=== PATIENT | female | born 1960 | race Caucasian/White ===

== ENCOUNTER 2020-05-17 14:21 | Outpatient (CLI) | payer BC, SELFPAY ==
--- NOTE | 2020-05-17 14:29 | MM_ITS ---
WS: [id number] SCREENING DIGITAL MAMMOGRAM WITH CAD HISTORY: SCREENING COMPARISON: None available. Bilateral CC and MLO views submitted. Computer aided detection analyzed. Breast composition: There are scattered areas of fibroglandular density. No suspicious masses, microc alcifications or architectural distortion. There are a few scattered calcifications. No mass. MM/[place] [id number] IMPRESSION: BI-RADS: 2-Benign FOLLOW UP: 1 Year Follow-up
== END 2020-05-17 14:22 | disposition home or self-care (01) ==
LOC: RADSHAW 14:26
PROVIDERS: PCP Internal Medicine; Visit Provider Internal Medicine
DX: Z12.31 Encounter for screening mammogram for malignant neoplasm of breast (principal)
CPT/HCPCS: 77067

== ENCOUNTER 2022-07-08 07:45 | Outpatient (CLI) | payer OTHER, SELFPAY ==
--- NOTE | 2022-07-08 07:54 | MM_ITS ---
WS: [id number] Bilateral screening 3D tomosynthesis digital mammogram, 07/08/2022 Clinical Data: SCREENING Comparison: 05/17/2020. Findings: The breast parenchymal pattern shows fat replacement. No spiculated masses or clustered calcification s are seen. There are no secondary signs of carcinoma. There is a 1.2 cm density in the central porti on of the right breast 6 cm from the nipple at the 12:00 position which has the appearance of an intr amammary lymph node. Recommend right breast ultrasound. The left breast is normal. There are lymph no caren in both axilla. MM/[place] [id number] Impression: 1. 1.2 cm central right breast nodule. 2. Recommend right breast ultrasound BIRADS: 0-Incomplete: Need additional imaging evaluation FOLLOW UP: Need Additional Imaging The CAD bingo checker was used.
== END 2022-07-08 07:46 | disposition home or self-care (01) ==
LOC: RAD 07:46
PROVIDERS: PCP Internal Medicine; Visit Provider Internal Medicine
DX: Z12.31 Encounter for screening mammogram for malignant neoplasm of breast (principal)
CPT/HCPCS: 77063; 77067

== ENCOUNTER 2022-07-24 08:40 | Outpatient (CLI) | payer OTHER, SELFPAY ==
--- NOTE | 2022-07-24 08:46 | US_ITS ---
WS: [id number] ULTRASOUND RIGHT BREAST HISTORY: ABNORMAL MAMMOGRAM COMPARISON: Mammogram 07/08/2000 [id number] 11/05/2020 TECHNIQUE: 2-D and Doppler. There is a small cyst RIGHT breast 12:00 at 6 cm from the nipple. Cyst measures 8 x 5 x 8 mm. This ma y not correlate with the mammographic abnormality. The size is smaller than expected. No additional a bnormality is identified. As imaging findings are not concordant short-term follow-up is recommended. US/US breast RT limited* [id number] IMPRESSION: BI-RADS: 3-Probably Benign FOLLOW-UP: 6 Month Follow-up Recommend mammographic and ultrasound follow-up in 6 months. The ultrasound fin dings are not completely concordant with the mammographic findings. Ultrasound findings of the cyst are benign. Cyst measures smaller than expected by mammogr aphy.
== END 2022-07-24 08:41 | disposition home or self-care (01) ==
LOC: RAD 08:41
PROVIDERS: PCP Internal Medicine; Visit Provider Internal Medicine
DX: R92.8 Other abnormal and inconclusive findings on diagnostic imaging of breast (principal); N60.01 Solitary cyst of right breast
CPT/HCPCS: 76642

== ENCOUNTER 2023-02-04 13:07 | Outpatient (CLI) | payer OTHER, SELFPAY ==
--- NOTE | 2023-02-04 13:20 | MM_ITS ---
WS: [id number] RIGHT DIAGNOSTIC DIGITAL TOMOSYNTHESIS MAMMOGRAPHY WITH CAD. RIGHT breast ultrasound, limited HISTORY: 6 month follow-up mass in the RIGHT breast which is not concordant with the ultrasound findi ngs. COMPARISON: 07/24/2022, 07/08/2022 Technique: CC, MLO and ML views. Breast composition: There are scattered areas of fibroglandular density. Mass persists measuring 12 mm in the superior slightly lateral RIGHT breast at anterior depth. No interval change. Ultrasound RIGHT breast, limited. Anechoic mass consistent with a cyst is identified at 12:00, 2 cm the nipple. The shape is very simil ar to the mammographic abnormality. The size today is 8 x 4 x 10 mm consistent with the mammographic finding. MM/[place] [id number] IMPRESSION: BI-RADS: 2-Benign FOLLOW UP: See Report Mammographic and ultrasound findings are concordant today. Cyst is identified a t 12:00, 2 cm from the nipple which is similar shape and size to the mammograph ic finding. Recommend return to annual screening mammography. Annual screening mammography recommended for June 2023.
== END 2023-02-04 13:08 | disposition home or self-care (01) ==
LOC: RAD 13:16
PROVIDERS: PCP Internal Medicine; Visit Provider Internal Medicine
DX: N60.01 Solitary cyst of right breast (principal)
CPT/HCPCS: 76642; 77061; G0279

== ENCOUNTER 2023-05-30 02:37 | Emergency (ER) | payer OTHER, SELFPAY ==
[2023-05-30 02:47] VITALS: BP 148/82; PULSE 65; RESP 19; TEMP 37.2; O2SAT 97; BMI 42.5
--- NOTE | 2023-05-30 03:23 | XRR_ITS ---
PROCEDURE INFORMATION: Exam: XR Chest Exam date and time: 05/30/2023 3:30 AM Age: 63 years old Clinical indication: Other: General weakness TECHNIQUE: Imaging protocol: Radiologic exam of the chest. Views: 1 view. COMPARISON: 1. CR XR chest 1V 12/16/2018 5:[address] angio chest PE protcl [id number] 12/16/2018 7:03 AM FINDINGS: Limitations: Evaluation mildly limited by patient body habitus. Lungs: No consolidation, mass, or pulmonary edema. Pleural spaces: No pneumothorax or obvious pleural effusion. Heart/Mediastinum: Cardiomediastinal silhouette is stable and unremarkable. Diaphragm: Mild eventration of the right hemidiaphragm. Bones/joints: No acute osseous abnormality. XR/XR chest 1V portable [id number] IMPRESSION: No acute findings.
--- NOTE | 2023-05-30 03:23 | CTR_ITS ---
PROCEDURE INFORMATION: Exam: CT Head Without Contrast Exam date and time: 05/30/2023 3:36 AM Age: 63 years old Clinical indication: Other: General weakness TECHNIQUE: Imaging protocol: Computed tomography of the head without contrast. Radiation optimization: All CT scans at this facility use at least one of these dose optimization techniques: automated exposure control; mA and/or kV adjustment per patient size (includes targeted exams where dose is matched to clinical indication); or iterative reconstruction. REPORTING DATA: Count of CT and Cardiac NM exams in prior 12 months: This patient has received 0 known CTs and 0 known cardiac nuclear medicine studies in the 12 months prior to the current study. COMPARISON: No relevant prior studies available. RADIATION DOSE METRICS: Total DLP (mGy-cm): 1038.39 FINDINGS: Brain: No acute intracranial hemorrhage, acute large territory infarct, or obvious mass lesion. Age appropriate diffuse cerebral volume loss. Minimal chronic white matter changes, likely to be chronic small vessel ischemic changes. Cerebral ventricles: No ventriculomegaly. Paranasal sinuses: Visualized sinuses are unremarkable. No fluid levels. Mastoid air cells: Visualized mastoid air cells are well aerated. Bones/joints: Unremarkable. No acute fracture. Soft tissues: Unremarkable. CT/CT head wo con* [id number] IMPRESSION: No acute intracranial abnormality.
--- NOTE | 2023-05-30 03:32 | ECG_ITS ---
[facility] Test Date: 2023-05-30 Pat Name: Marie Ramirez Department: Room: Gender: Female Parts Data Writer: : 1960 Requested By: Cristofer Todd Order Number: [id number] Darrick MD: Eugene Montenegro M.D. Measurements Intervals [place] Rate: 64 P: 69 SD: 188 QRS: 9 QRSD: 115 T: 34 QT: 397 QTc: 411 Interpretive Statements SINUS RHYTHM MODERATE INTRAVENTRICULAR CONDUCTION DELAY [110+ ms QRS DURATION] Compared to ECG 12/16/2018 07:37:04 Intraventricular conduction delay now present T-wave abnormality no longer present Electronically Signed On 05-30-2023 9:43:41 CDT by Eugene Montenegro M.D. [id number]
--- NOTE | 2023-05-30 03:44 | W.ED.WEAKNES ---
HPI - Weakness General: Chief complaint: Weakness Stated complaint: Not Coherent\Low Energy Time Seen by Provider: 05/30/23 02:51 History of Present Illness: 63-year-old female who has not been in her usual state of health for the past 2 to 3 weeks. She was seen by her primary physician, and found to have uncontrolled blood pressure, so her dosage was doubled. She was also recently referred to rheumatology for inflammation problems . She has been generally weak on and off, and according to her has been less coherent at times. She went to bed last night sometime around 11 PM. She woke up at some point this morning, and felt more ill. She complained of pain to the right side of her head radiating into her right jaw. She complained of right eye blurriness, and perhaps trouble finding her words. The symptoms are resolved currently. MD Complaint: generalized weakness and lack of energy Onset (ago): hour(s) Duration: constant and now resolved Location: generalized Migration: none Severity: moderate Associated symptoms: Reports headache(s); Denies chest pain, fever(s), nausea or vomiting Review of Systems Const: Denies: fever(s) ENMT: Denies: throat pain Card: Denies: chest pain or palpitations Resp: Denies: dyspnea, productive cough or non-productive cough GI: Denies: abdominal pain, nausea or vomiting Musc: Denies: neck pain or back pain Neuro: Reports: headache(s), weakness in extremities and dizziness; Denies: numbness in extremities, sensory changes, lack of coordination or difficulty walking Physical Exam Const: COMMON NORMALS: no acute distress GENERAL APPEARANCE: cooperative; not ill appearing and not frail appearing HENMT: COMMON NORMALS: normocephalic, atraumatic and Normal external nose present HEAD & SCALP: normocephalic and atraumatic FACE & SINUS: normal facial exam and face symmetric NOSE: Normal external nose present Eye: COMMON NORMALS: Equal, round and reactive pupils present and EOMs intact bilaterally PUPIL: Yes Equal, round and reactive pupils present Neck/C-Spine: GENERAL: Yes trachea midline Chest: CHEST: Yes Symmetrical chest wall rise Resp: COMMON NORMALS: normal respiratory effort, No retractions, No use of accessory muscles and clear to auscultation bilaterally AUSCULTATION: clear to auscultation bilaterally Cardio: COMMON NORMALS: regular rate and regular rhythm RATE: regular rate RHYTHM: regular rhythm GI: COMMON NORMALS: Normal to inspection, nondistended, normoactive bowel sounds present Extremity: COMMON NORMALS: no pedal edema Neuro: NORTH COMA SCALE: document GCS findings North coma scale eye opening: Spontaneous [place] coma scale verbal response: Orientated North coma scale motor response: Obey commands North coma scale total score: 15 SENSORY EXAM: Yes extremities (intact) Psych: COMMON NORMALS: speech normal SPEECH: Yes normal speech Skin: COMMON NORMALS: no rashes or lesions noted GENERAL SKIN EXAM: no rashes or lesions noted Course Vital Signs: Vital signs: Vital Signs Temperature 98.9 F 05/30/23 02:47 Pulse Rate 65 05/30/23 02:47 Respiratory Rate 19 H 05/30/23 02:47 Blood Pressure 148/82 05/30/23 02:47 Pulse Oximetry 97 05/30/23 02:47 Oxygen Delivery Me thod Room Air 05/30/23 02:47 MDM - Weakness Medical Decision Making NIH stroke scale is 0. Head CT is negative for any acute finding. Chest x-ray is negative. CBC is normal. Sodium is 132 otherwise BMP and liver enzymes are essentially normal. Urinalysis shows a mild urinary tract infection likely. Likely not a cause of her symptoms. She is feeling improved after IV fluids and Depacon infusion. In the differential would be TIA, atypical migraine, vasculitis, etc. With resolution of her blurry vision, and improvement in her symptoms otherwise, she will be allowed home to continue outpatient work-up. This probably should include at this point echo and carotids. Patient was informed of this. She will follow-up with her PCP. Full dose aspirin until work-up is complete. Lab Data 05/30/23 03:55 05/30/23 03:55 Radiology Impressions Chest X-Ray 05/30/23 03:23 IMPRESSION: No acute findings. Head CT 05/30/23 03:23 IMPRESSION: No acute intracranial abnormality. Laboratory Results WBC 8.3 10^3/uL (4.0-10.0) 05/30/23 03:55 RBC 4.56 10^6/uL (4.1-5.3) 05/30/23 03:55 Hgb 14.3 g/dL (11.5-15.3) 05/30/23 03:55 Hct 45.0 % (37.0-47.0) 05/30/23 03:55 MCV 98.7 fl (81-99) 05/30/23 03:55 MCH 31.4 pg (28.0-34.0) 05/30/23 03:55 MCHC 31.8 g/dL (30.0-36.0) 05/30/23 03:55 RDW 12.3 % (12.1-15.1) 05/30/23 03:55 Plt Count 208 10^3/cmm (130-400) 05/30/23 03:55 MPV 11.0 fL (7.4-10.4) H 05/30/23 03:55 Neut % (Auto) 63.1 % 05/30/23 03:55 Lymph % (Auto) 26.9 % 05/30/23 03:55 [place]oval % (Auto) 8.1 % 05/30/23 03:55 Eos % (Auto) 1.4 % 05/30/23 03:55 Baso % (Auto) 0.4 % 05/30/23 03:55 Neut # (Auto) 5.23 10^3/uL (1.8-7.7) 05/30/23 03:55 Lymph # (Auto) 2.2 10^3/uL (0.8-4.8) 05/30/23 03:55 [place] # (Auto) 0.7 10^3/uL (0.2-0.9) 05/30/23 03:55 Eos # (Auto) 0.1 10^3/uL (0.0-0.8) 05/30/23 03:55 Baso # (Auto) 0.0 10^3/uL (0.0-0.1) 05/30/23 03:55 Nucleated RBC % (auto) 0 % 05/30/23 03:55 Nucleated RBCs # 0.0 /100WBC 05/30/23 03:55 Sodium 132 mmol/L (136-145) L 05/30/23 03:55 Potassium 3.5 mmol/L (3.5-5.1) 05/30/23 03:55 Chloride 98 mmol/L (98-107) 05/30/23 03:55 Carbon Dioxide 24 mmol/L (22-29) 05/30/23 03:55 Anion Gap 13.5 (5-19) 05/30/23 03:55 BUN 11 mg/dL (8-23) 05/30/23 03:55 Creatinine 0.7 mg/dL (0.5-0.9) 05/30/23 03:55 GFR Calculation 85.1 mL/min (90-130) L 05/30/23 03:55 Glucose 115 mg/dL (65-115) 05/30/23 03:55 Calculated Osmolality 274 mOsm/kg (285-295) L 05/30/23 03:55 Calcium 9.3 mg/dL (8.5-10.5) 05/30/23 03:55 Total Bilirubin 0.3 mg/dL (0.15-1.2) 05/30/23 03:55 AST 13 U/L (0-32) 05/30/23 03:55 ALT 14 U/L (0-33) 05/30/23 03:55 Alkaline Phosphatase 64 U/L (35-105) 05/30/23 03:55 Creatine Kinase 76 U/L (26-192) 05/30/23 03:55 C-Reactive Protein 8.4 mg/L (0.0-4.9) H 05/30/23 03:55 Total Protein 7.2 g/dL (6.6-8.7) 05/30/23 03:55 Albumin 4.0 g/dL (3.5-5.2) 05/30/23 03:55 Globulin 3.2 g/dL (1.3-4.6) 05/30/23 03:55 Procalcitonin 0.05 ng/mL (0-0.5) 05/30/23 03:55 Urine Color Yellow (Yellow) 05/30/23 05:09 Urine Appearance Hazy (CLEAR) A 05/30/23 05:09 Urine pH 5 (5-7) 05/30/23 05:09 Ur Specific [place] 1.010 (1.005-1.030) 05/30/23 05:09 Urine Protein Neg (Negative) 05/30/23 05:09 Urine Glucose (UA) Norm (Normal) 05/30/23 05:09 Urine Ketones Negative (Negative) 05/30/23 05:09 Urine Blood Neg (Negative) 05/30/23 05:09 Urine Nitrate Negative (Negative) 05/30/23 05:09 Urine Bilirubin Neg (Negative) 05/30/23 05:09 Urine Urobilinogen Norm mg/dL (Negative) 05/30/23 05:09 Ur Leukocyte Esterase 1+ (Negative) H 05/30/23 05:09 Urine RBC 0-4 /hpf (0-2) H 05/30/23 05:09 Urine WBC 5-10 /hpf (0-5) H 05/30/23 05:09 Ur Squamous Epith Cells 0-4 /hpf (0-5) H 05/30/23 05:09 Amorphous Sediment Not Reportable 05/30/23 05:09 Urine Bacteria Trace /hpf (NONE) 05/30/23 05:09 Discharge Plan Discharge Patient Disposition: Home Clinical Impression: Headache, Alteration in vision, UTI (urinary tract infection) Condition: Stable Prescriptions: New aspirin 325 mg capsule 325 mg PO DAILY Qty: 30 0RF Discharge Orders: Discharge ED (Routine); Ordered 05/30/23 Ordered By: Cristofer Montes Referrals: Era Lr MD [Primary Care Provider] - 1-3 days Patient Instructions: Urinary Tract Infection in Women (ED), Weakness (ED), Opioid Safety, Pain Management Activity Restrictions/Additional Instructions: Return for any return of symptoms such as blurry vision, trouble with speech or language, weakness, etc. See your doctor this week. Further outpatient work-up may be needed including ultrasounds of your heart and carotid arteries. Take a full dose aspirin daily until evaluated by your doctor. Coding Level of Care Code ED [employer] [place] NIH stroke score NIHSS Level Of Consciousness - 1a: 0 Level Of Consciousness Questions - 1b: Both Correct Level Of Consciousness Commands - 1c: Both Correct Best Gaze - 2: Normal Visual Evans - 3: No Visual Loss Facial Palsy - 4: Normal Motor Arm Right - 5: No Drift Motor Arm Left - 5: No Drift Motor Leg Right - 6: No Drift Motor Leg Left - 6: No Drift Limb Ataxia - 7: Absent Sensory - 8: Normal Best Language - 9: No Aphasia Dysarthia - 10: Normal Extinction And Inattention - 11: 0 Score Total Score: 0
[2023-05-30] MEDS: valproic acid inj 500 MG in sodium chloride 0.9% 50 ML 55 MG IV (03:56)
[2023-05-30] MEDS: sodium chloride 0.9% 500 ML IV (03:56)
[2023-05-30 03:59] LABS: Basophils % 0.4 %; Eosinophils # 0.1 10^3/uL (0.0-0.8); Eosinophils % 1.4 %; Hemoglobin 14.3 g/dL (11.5-15.3); Lymphocytes # 2.2 10^3/uL (0.8-4.8); Lymphocytes % 26.9 %; Mean Corpuscular HGB Conc 31.8 g/dL (30.0-36.0); Mean Corpuscular Hemoglobin 31.4 pg (28.0-34.0); Mean Corpuscular Volume 98.7 fl (81-99); Monocytes # 0.7 10^3/uL (0.2-0.9); Monocytes % 8.1 %; Neutrophils # 5.23 10^3/uL (1.8-7.7); Neutrophils % 63.1 %; Nucleated Red Blood Cells % 0 %; Platelet Count 208 10^3/cmm (130-400); Red Blood Count 4.56 10^6/uL (4.1-5.3); Red Cell Distribution Width 12.3 % (12.1-15.1); White Blood Count 8.3 10^3/uL (4.0-10.0)
[2023-05-30 04:17] LABS: Alanine Aminotransferase 14 U/L (0-33); Alkaline Phosphatase 64 U/L (35-105); Anion Gap 13.5 (5-19); Aspartate Amino Transferase 13 U/L (0-32); Blood Urea Nitrogen 11 mg/dL (8-23); C Reactive Protein 8.4 mg/L (0.0-4.9); Calcium 9.3 mg/dL (8.5-10.5); Carbon Dioxide 24 mmol/L (22-29); Chloride 98 mmol/L (98-107); Creatine Phosphokinase 76 U/L (26-192); Globulin 3.2 g/dL (1.3-4.6); Glomerular Filtration Rate 85.1 mL/min (90-130); Glucose 115 mg/dL (65-115); Osmolality Calculated 274 mOsm/kg (285-295); Potassium 3.5 mmol/L (3.5-5.1); Sodium 132 mmol/L (136-145); Total Bilirubin 0.3 mg/dL (0.15-1.2); Total Protein 7.2 g/dL (6.6-8.7)
[2023-05-30 04:22] LABS: Procalcitonin 0.05 ng/mL (0-0.5)
[2023-05-30 05:28] LABS: Add Urine Microscopic? YES; Bilirubin Urine Neg (Negative); Blood Urine Neg (Negative); Glucose Urine UA Norm (Normal); Ketones Urine Negative (Negative); Leukocyte Esterase Urine 1+ (Negative); Nitrate Urine Negative (Negative); Protein Urine Neg (Negative); Urine Appearance Hazy (CLEAR); Urine Color Yellow (Yellow); Urobilinogen Urine Norm (Negative); pH Urine 5 (5-7)
[2023-05-30 05:30] LABS: RBC Urine 0-4 /hpf (0-2)
[2023-05-30 05:31] LABS: Bacteria Urine TRACE /hpf; Squamous Epithelial Cell Urine 0-4 /hpf (0-5)
[2023-05-30 05:58] VITALS: BP 122/58; PULSE 63; RESP 16; O2SAT 97
== END 2023-05-30 05:54 | disposition home or self-care (01) ==
PROVIDERS: Emergency Provider Emergency Medicine; PCP Internal Medicine
DX: R51.9 Headache, unspecified (principal); H53.9 Unspecified visual disturbance; N39.0 Urinary tract infection, site not specified
CPT/HCPCS: 70450; 71045; 80053; 81001; 82550; 84145; 85025; 86140; 93005; 99285; J3490; J7040

== ENCOUNTER 2023-08-11 09:45 | Outpatient (CLI) | payer OTHER, SELFPAY ==
--- NOTE | 2023-08-11 09:52 | MM_ITS ---
WS: [id number] BILATERAL SCREENING DIGITAL TOMOSYNTHESIS MAMMOGRAM WITH CAD HISTORY: SCREENING COMPARISON: 02/04/2023, 07/08/2022 Bilateral CC and MLO views with tomosynthesis and synthetic mammography submitted. Computer aided det ection analyzed. Breast composition: There are scattered areas of fibroglandular density. No suspicious masses, microc alcifications or architectural distortion. Reidentified is 11 mm ovoid mass near 12:00 of the RIGHT b reast at a middle depth. Noted to be a cyst on a prior ultrasound. No suspicious calcification or mas s. IMPRESSION: MM/[place] [id number] BI-RADS: 2-Benign FOLLOW UP: 1 Year Follow-up
== END 2023-08-11 09:46 | disposition home or self-care (01) ==
PROVIDERS: PCP Internal Medicine; Visit Provider Internal Medicine
DX: Z12.31 Encounter for screening mammogram for malignant neoplasm of breast (principal)
CPT/HCPCS: 77063; 77067

== ENCOUNTER 2024-11-21 10:31 | Outpatient (CLI) | payer OTHER, SELFPAY ==
--- NOTE | 2024-11-21 10:33 | MM_ITS ---
WS: [id number] BILATERAL 3D TOMOSYNTHESIS DIGITAL SCREENING MAMMOGRAM WITH CAD CLINICAL INFORMATION: SCREENING HISTORY: Screening mammogram. No current complaints. COMPARISON: 2022 TECHNIQUE: Bilateral CC and MLO views. FINDINGS: Fatty-replaced breasts bilaterally. No suspicious focal mass, asymmetry, calcifications, or architecture instructor ural distortion. No evidence of malignancy. Stable 11 mm nodule anterior RIGHT breast. This was demon strated to represent a cyst on the prior ultrasound. MM/MM [facility] tomosynthesis [id number] IMPRESSION: DENSITY: There are scattered areas of fibroglandular density. BI-RADS: 2 - Benign. FOLLOW UP: 1 Year Follow-up Recommend return to annual screening mammography.
== END 2024-11-21 10:32 | disposition home or self-care (01) ==
LOC: RAD 10:32
PROVIDERS: PCP Internal Medicine; Visit Provider Internal Medicine
DX: Z12.31 Encounter for screening mammogram for malignant neoplasm of breast (principal); R92.323 Mammographic fibroglandular density, bilateral breasts; R92.313 Mammographic fatty tissue density, bilateral breasts; N63.10 Unspecified lump in the right breast, unspecified quadrant
CPT/HCPCS: 77063; 77067

== ENCOUNTER 2025-05-28 14:53 | Emergency (ER) | payer OTHER, SELFPAY ==
[2025-05-28 15:33] VITALS: BP 125/81; PULSE 80; RESP 22; TEMP 36.6; O2SAT 99; BMI 39.9
--- NOTE | 2025-05-28 16:08 | XRR_ITS ---
PROCEDURE INFORMATION: Exam: XR Lumbosacral Spine Exam date and time: 05/28/2025 4:22 PM Age: 65 years old Clinical indication: Low back pain; Additional info: Back pain/injury TECHNIQUE: Imaging protocol: Radiologic exam of the lumbosacral spine. Views: 2 or 3 views. COMPARISON: No relevant prior studies available. FINDINGS: Bones/joints: Facet arthropathy can be seen at multiple levels. No acute fracture or subluxation noted. Mild vertebral body spurring can be seen anteriorly at multiple levels.The bony structures demonstrate diffuse osteopenia. Soft tissues: Unremarkable. XR/XR lumbar spine 2-3V* [id number] IMPRESSION: Osteoporosis with multilevel arthritic changes. No fracture noted.
--- NOTE | 2025-05-28 16:08 | W.ED.BACK ---
Documented by User: DOROTA Ashley 05/28/25 16:28 HPI - Back Pain/Injury General: Chief Complaint: Back Pain/Injury Stated Complaint: back pains Time Seen by Provider: 05/28/25 16:05 Source: patient Mode of arrival: wheelchair Limitations: no limitations History of Present Illness: Patient is a 65-year-old female presents to ED today with complaint of low back pain that began just a few hours ago. Patient states she was trying to lift her garage door to get it off of an [employer] package that had been delivered when she immediately heard a loud pop in her lower back and has since had significant discomfort. She states pain does not radiate down into her buttocks or lower extremities. She states pain does not radiate into her abdomen. Patient not complaining of numbness, tingling, loss of sensation to her legs. Pain is significantly worse with movement. Denies previous back issues. MD elicited complaint: back pain Pertinent past history: recent trauma Onset (ago): hour(s) Timing: constant Severity: severe Similar Symptoms Previously: No Quality: sharp Location: lumbar spine Radiation: none Exacerbating factors: movement Relieving factors: none Context: while lifting Associated symptoms: Reports no associated symptoms and difficulty walking (due to back pain); Deny abdominal pain, fever(s) or hematuria Work related injury: No Related Data Previous Rx's ?Medication ?Instructions ?Recorded aspirin 325 mg capsule 325 mg PO DAILY #30 caps 05/30/23 ketorolac 10 mg tablet 10 mg PO Q6H PRN pain 5 days #20 05/28/25 tabs tizanidine 4 mg tablet 4 mg PO Q8H PRN muscle spasticity 05/28/25 #20 tabs Allergies Allergy/AdvReac Type Severity Reaction Status Date / Time No Known Allergies Allergy Verified 05/28/25 15:37 Review of Systems Const: Denies: fever(s) Card: Denies: chest pain Resp: Denies: dyspnea GI: Denies: abdominal pain : Denies: flank pain or hematuria Musc: Reports: back pain; Denies: neck pain, extremity pain or joint pain Neuro: Reports: difficulty walking (due to back pain); Denies: numbness in extremities, weakness in extremities or sensory changes Physical Exam Const: COMMON NORMALS: no acute distress, patient oriented x3, no limitations, alert and well nourished GENERAL APPEARANCE: cooperative NUTRITIONAL APPEARANCE: obese morbidly obese ORIENTATION/CONSCIOUSNESS: Yes awake, Yes oriented to person, Yes oriented to place and Yes oriented to time Chest: COMMONS NORMALS: normal inspection of the chest and normal palpation of entire chest wall Resp: COMMON NORMALS: normal respiratory effort and clear to auscultation bilaterally AUSCULTATION: clear to auscultation bilaterally Cardio: COMMON NORMALS: regular rate and regular rhythm RATE: regular rate RHYTHM: regular rhythm GI: COMMON NORMALS: Normal to inspection, nondistended, normoactive bowel sounds present, Soft to palpation, non-tender and no masses PALPATION: Yes Soft to palpation Back/Pelvis: COMMON NORMALS: thoracic and lumbar spine normal to inspection and straight leg raise negative bilaterally THORACIC SPINE/UPPER BACK: No thoracic spinal tenderness LUMBAR SPINE/LOWER BACK: Yes ROM limited, Yes lumbar spinal tenderness, No paraspinal muscle tenderness and No paraspinal muscle spasm PELVIS: Yes buttocks normal SACROILIAC JOINTS: Yes SI joints normal SACRUM: no tenderness COCCYX: no tenderness Extremity: COMMON NORMALS: capillary refill normal, no clubbing, cyanosis or edema, no calf tenderness and no pedal edema GENERAL: Yes normal exam except as noted Neuro: COMMON NORMALS: patient oriented x3, moves all extremities, no focal motor deficits and no sensory deficits noted SENSORIUM/ORIENTATION: Yes alert, Yes oriented to person, Yes oriented to place and Yes oriented to time Course Vital Signs: Vital signs: Vital Signs Temperature 98 F 05/28/25 15:33 Pulse Rate 70 05/28/25 17:11 Respiratory Rate 16 05/28/25 17:11 Blood Pressure 103/58 05/28/25 17:11 Pulse Oximetry 94 05/28/25 17:11 Oxygen Delivery Me thod Room Air 05/28/25 17:11 MDM - Back Pain/Injury Labs Radiology Impressions Lumbar Spine X-Ray 05/28/25 16:08 IMPRESSION: Osteoporosis with multilevel arthritic changes. No fracture noted. Discharge Plan Discharge Patient Disposition: Home Clinical Impression: Low back pain Qualifiers: Chronicity: acute Back pain laterality: midline Sciatica presence: without sciatica Qualified Code(s): M54.50 - Low back pain, unspecified Strain of lumbar region Qualifiers: Encounter type: initial encounter Qualified Code(s): S39.012A - Strain of muscle, fascia and tendon of lower back, initial encounter Condition: Stable Prescriptions: New ketorolac 10 mg tablet 10 mg PO Q6H PRN (Reason: pain) 5 Days Qty: 20 0RF tizanidine 4 mg tablet 4 mg PO Q8H PRN (Reason: muscle spasticity) Qty: 20 0RF No Action aspirin 325 mg capsule 325 mg PO DAILY Qty: 30 0RF Discharge Orders: Discharge ED (Routine); Ordered 05/28/25 Ordered By: Don Cruz Referrals: Era Lr MD [Primary Care Provider, Internal Medicine] Discharge Diet: Usual diet Discharge Activity: Increase activity as tolerated Patient Instructions: Acute Low Back Pain (ED), Lower Back Exercises (ED), Pain Management, Patient Portal & [facility] Instructions Activity Restrictions/Additional Instructions: No fracture noted on the x-ray today. The x-ray of your low back does reveal osteoporosis as well as arthritis. A short course of ketorolac and tizanidine have been sent to your pharmacy. Please do not drive or operate heavy machinery while taking tizanidine Work on range of motion exercises beginning tomorrow. Apply a warm compress to the back for 10 to 15 minutes prior to beginning range of motion exercises. Apply a cool compress for 10 to 15 minutes after exercising to help with inflammation Avoid lifting for the next 3 to 5 days. Activity as tolerated. Follow-up with primary care, call in the next couple of days with an update of symptoms and to schedule a recheck Return to the emergency department if any rapid worsening symptoms, further injury, groin numbness/tingling, lower extremity weakness, incontinence, and as needed Print Language: Panamanian Coding Level of Care Code ED [employer] for [employer] Documented by User: NAILA Morrow 05/28/25 17:55 HPI - Back Pain/Injury General: Chief Complaint: Back Pain/Injury Stated Complaint: back pains Time Seen by Provider: 05/28/25 16:05 Related Data Previous Rx's ?Medication ?Instructions ?Recorded aspirin 325 mg capsule 325 mg PO DAILY #30 caps 05/30/23 ketorolac 10 mg tablet 10 mg PO Q6H PRN pain 5 days #20 05/28/25 tabs tizanidine 4 mg tablet 4 mg PO Q8H PRN muscle spasticity 05/28/25 #20 tabs Allergies Allergy/AdvReac Type Severity Reaction Status Date / Time No Known Allergies Allergy Verified 05/28/25 15:37 Course Vital Signs: Vital signs: Vital Signs Temperature 98 F 05/28/25 15:33 Pulse Rate 70 05/28/25 17:11 Respiratory Rate 16 05/28/25 17:11 Blood Pressure 103/58 05/28/25 17:11 Pulse Oximetry 94 05/28/25 17:11 Oxygen Delivery Me thod Room Air 05/28/25 17:11 MDM - Back Pain/Injury Medical Decision Making Received patient at 1700 from DOROTA Rhoades due to change of shift. X-ray pending. Patient did report improvement in her pain after medication administration of orphenadrine, morphine, ketorolac, and dexamethasone. She states that the pain is now tolerable and dull. Awaiting x-ray results. No cauda equina symptoms. X-ray of the lumbar spine does reveal osteoporosis with multilevel arthritic changes. No fractures noted. Discussed findings with patient and family. Prescription of ketorolac and tizanidine sent to patient's pharmacy, sedation precautions provided. Recommend application of a cool compress to help with inflammation and warm compress prior to working on range of motion exercises. Discussed activity modification. Recommend she follow-up with primary care, call in 2 days with an update of symptoms and to discuss recheck. Return precautions provided. Patient states understanding and has no further questions or concerns at this time. Medical Records I reviewed the patient's medical records. Labs Radiology Impressions Lumbar Spine X-Ray 05/28/25 16:08 IMPRESSION: Osteoporosis with multilevel arthritic changes. No fracture noted. All radiology interpretation(s) finalized by discharge Discharge Plan Discharge Patient Disposition: Home Clinical Impression: Low back pain Qualifiers: Chronicity: acute Back pain laterality: midline Sciatica presence: without sciatica Qualified Code(s): M54.50 - Low back pain, unspecified Strain of lumbar region Qualifiers: Encounter type: initial encounter Qualified Code(s): S39.012A - Strain of muscle, fascia and tendon of lower back, initial encounter Condition: Stable Prescriptions: New ketorolac 10 mg tablet 10 mg PO Q6H PRN (Reason: pain) 5 Days Qty: 20 0RF tizanidine 4 mg tablet 4 mg PO Q8H PRN (Reason: muscle spasticity) Qty: 20 0RF No Action aspirin 325 mg capsule 325 mg PO DAILY Qty: 30 0RF Discharge Orders: Discharge ED (Routine); Ordered 05/28/25 Ordered By: Don Cruz Referrals: Era Lr MD [Primary Care Provider, Internal Medicine] Discharge Diet: Usual diet Discharge Activity: Increase activity as tolerated Patient Instructions: Acute Low Back Pain (ED), Lower Back Exercises (ED), Pain Management, Patient Portal & [facility] Instructions Activity Restrictions/Additional Instructions: No fracture noted on the x-ray today. The x-ray of your low back does reveal osteoporosis as well as arthritis. A short course of ketorolac and tizanidine have been sent to your pharmacy. Please do not drive or operate heavy machinery while taking tizanidine Work on range of motion exercises beginning tomorrow. Apply a warm compress to the back for 10 to 15 minutes prior to beginning range of motion exercises. Apply a cool compress for 10 to 15 minutes after exercising to help with inflammation Avoid lifting for the next 3 to 5 days. Activity as tolerated. Follow-up with primary care, call in the next couple of days with an update of symptoms and to schedule a recheck Return to the emergency department if any rapid worsening symptoms, further injury, groin numbness/tingling, lower extremity weakness, incontinence, and as needed Print Language: Panamanian Coding Level of Care Code ED [employer] for [facility]
[2025-05-28 16:35] VITALS: RESP 22
[2025-05-28] MEDS: morphine 4 mg/mL SDV 1 mL IVP (16:35)
[2025-05-28] MEDS: orphenadrine 30 mg/mL Inj 2 mL 60 MG IVP (16:44)
[2025-05-28 17:11] VITALS: BP 103/58; PULSE 70; RESP 16; O2SAT 94
[2025-05-28 18:07] VITALS: BP 107/58; PULSE 62; O2SAT 94
== END 2025-05-28 18:08 | disposition home or self-care (01) ==
PROVIDERS: Emergency Provider Physician Assistant; PCP Internal Medicine
DX: S39.012A Strain of muscle, fascia and tendon of lower back, initial encounter (principal); Z79.82 Long term (current) use of aspirin; X58.XXXA Exposure to other specified factors, initial encounter
CPT/HCPCS: 72100; 96374; 96375; 99284; J1100; J1885; J2270; J2360